=== PATIENT | male | born 1965 | race Caucasian/White ===

== ENCOUNTER 2022-03-25 12:33 | Emergency (ER) | payer BC, SELFPAY ==
[2022-03-25 12:40] VITALS: BP 164/79; PULSE 89; RESP 16; TEMP 37; O2SAT 98
--- NOTE | 2022-03-25 13:00 | DI.RAD_ITS ---
Exam(s) XR FEMUR RT EXAM: XR FEMUR RT CLINICAL HISTORY: Fall, R/O Fracture. TECHNIQUE: 2D digital imaging was performed. COMPARISON: No exams were available for comparison FINDINGS: Four views: There is no evidence of right hip fracture nor hip joint space narrowing. Remainder of the right fem ur also appears unremarkable. There is no obvious joint effusion at the level of the knee. Visualiz ed tibial plateau unremarkable and there is no joint space narrowing in the knee nor in the hip. Bone density is normal. No osseous lesions. IMPRESSION: No significant osseous findings in the right femur and hip. DATA REPOSITORY: RADIATION DOSE DELIVERED:
--- NOTE | 2022-03-25 13:00 | DI.RAD_ITS ---
Exam(s) XR PELVIS AP EXAM: XR PELVIS AP CLINICAL HISTORY: Fall R/O Fracture. TECHNIQUE: 2D digital imaging was performed. COMPARISON: No exams were available for comparison FINDINGS: Single AP view No evidence of pelvic nor hip fracture. Small calcific densities seen just lateral to the greater tr ochanter of the left hip, this measuring 3 x 1 millimeter. Correlation with site of tenderness recom mended. There are no degenerative changes in the hip joints. SI joints unremarkable. Bone density normal. No osseous lesions. IMPRESSION: Small calcific density lateral to the greater trochanter of the left hip. Correlation with site of t enderness recommended. DATA REPOSITORY: RADIATION DOSE DELIVERED:
--- NOTE | 2022-03-25 13:14 | ED.GENADUL_ITS ---
Discharge Plan Disposition Patient Disposition: Home Condition: Stable Discharge Details Clinical Impression: Fall as cause of accidental injury at home as place of occurrence, Contusion of hip, right Primary Care Provider: None,None ED Provider: Genesis Johnston Home Meds and New Rx's Prescriptions: No Action allopurinol 300 MG tablet 300 mg PO DAILY rosuvastatin 5 mg Tablet 5 mg PO DAILY Discharge Instructions Instructions: Contusion in Adults (ED), Fall Prevention (ED) Additional Instructions: X-rays show no evidence for fracture. I do suspect possible sprain and/or contusion. Rest, you may apply ice every 20 minutes for the first couple of days. Please take Tylenol or Ibuprofen with food every 4-6 hours as needed for pain and swelling. Follow up with primary care provider in 7-10 days if needed. Return to ED sooner if any worsening or concerns. Increase oral fluids. Referrals: Charli Osorio [Emergency Nurse] - 2 weeks Discharge Data Discharge Date/Time-TO BE ENTERED AT DEPARTURE: 03/25/22 14:44 Medical Decision Making 56-year-old male presents to the ER with a chief complaint of mechanical fall which occurred 7 PM last night he reports that he slipped in the driveway his feet came out from under him he landed on his right side. He is complaining of right hip pain and radiation of pain into his right femur. No obvious deformity swelling or ecchymosis noted. He did take some naproxen last night which helped with the pain. He is ambulatory here upon arrival. X-ray pelvis femur ordered. Rule out fracture. I do suspect musculoskeletal strain. X-ray within normal limits see results below. Discussed RICE procedures with patient and home care. This text was generated using [employer] system, please disregard any oddities of phrase or misspellings. Imaging Data Radiologic Study: Imaging: X-Ray Radiologist's impression: TECHNIQUE: Imaging protocol: Radiologic exam of the Right femur. Views: 2 views. COMPARISON: CR XR PELVIS AP 03/25/2022 1:40 PM FINDINGS: Bones/joints: Unremarkable. No acute fracture. Soft tissues: Unremarkable. IMPRESSION: No acute findings. Thank you for allowing us to participate in the care of your patient. Dictated and Authenticated by: Farideh Vasques MD Radiologic Study #2: Imaging: X-Ray Radiologist's impression: TECHNIQUE: Imaging protocol: Radiologic exam of the pelvis. Views: 1 or 2 view. COMPARISON: No relevant prior studies available. FINDINGS: Bones/joints: Unremarkable. No acute fracture. Soft tissues: Unremarkable. IMPRESSION: No acute findings. Thank you for allowing us to participate in the care of your patient. Dictated and Authenticated by: Farideh Vasques MD [facility] General Mode of arrival: ambulatory . Date/Time Provider Initiated Documentation: 03/25/22 12:49 . Limitations to Documentation: no limitations . Information obtained by: patient, RN notes reviewed and old records reviewed . HPI Narrative: 56-year-old male presents to the ER with a chief complaint of mechanical fall which occurred 7 PM last night he reports that he slipped in the driveway his feet came out from under him he landed on his right side. He is complaining of right hip pain and radiation of pain into his right femur. No obvious deformity swelling or ecchymosis noted. He did take some naproxen last night which helped with the pain. He is ambulatory here upon arrival. Denies any neck, back pain or abdominal pain. He is not on any blood thinners or aspirin. No other associated symptoms. Related Data Home Medications Medication Instructions Recorded Confirmed allopurinol 300 mg tablet 300 mg PO DAILY 03/14/17 03/25/22 rosuvastatin 5 mg tablet 5 mg PO DAILY 03/25/22 03/25/22 Allergies Allergy/AdvReac Type Severity Reaction Status Date / Time No Known Allergies Allergy Unverified 03/25/22 13:02 General Stated Complaint: Orthopedic TG: 3 Review of Systems All systems reviewed & are unremarkable except as noted in HPI and below ENT Ears, Nose, Mouth, and Throat: Denies neck pain Musculoskeletal Musculoskeletal: Reports as per HPI, Denies back pain, Denies deformity, Reports arthralgias, Denies loss of height, Denies neck pain, Denies numbness, Reports radiating pain into limb and Denies tingling Neurologic Neurologic: Denies numbness and Denies tingling [facility] All Active Problems (Updated 03/25/22 @ 14:35 by Genesis Johnston NP) Fall as cause of accidental injury at home as place of occurrence (Acute) Contusion of hip, right (Acute) Social History Smoking/Tobacco Use Status: Never Smoking risk assessment performed?: Yes Do you feel safe at home: Yes Do you feel safe in your relationship?: Yes Exam Narrative Exam Narrative: General: Well Developed, Awake and Alert, conversant. Skin: Warm and Dry HEENT: Head: No palpable deformities, Normocephalic Eyes: Pupils PERRLA, EOM's intact. Nose/Face: Atraumatic. Neck: No midline tenderness, no step off, no deformity to palpation of C-spine. Trachea midline. Chest: No surface trauma. Nontender without crepitus or deformity. Lungs clear to ausculatation bilaterally. Heart: RRR, no rubs, murmurs or gallop. Abdomen: No abrasions, ecchymosis, or surface trauma. Nondistended. Nontender to palpation no guarding, rebound, or rigidity. Pelvis: Right side tenderness to palpation and stable to compression. Femoral pulses strong and equal no significant swelling noted to the thigh, no ecchymosis or bruising noted. Extremities: no surface trauma. Sensation intact. Peripheral pulses intact and equal. Neuro: ANO x4, GCS 15, cranial nerves II through XII intact. Motor and sensory exam nonfocal. Reflexes are symmetric. Course Vital Signs Vital signs: Vital Signs Temperature 37.0 C 03/25/22 12:40 Pulse 89 03/25/22 12:40 Respiratory Rate 16 03/25/22 12:40 Blood Pressure 164/79 H 03/25/22 12:40 Pulse Oximetry 98 03/25/22 12:40 Temperature 37.0 C 03/25/22 12:40 Temperature Source Temporal Artery Scan 03/25/22 12:40 Pulse 89 03/25/22 12:40 Respiratory Rate 16 03/25/22 12:40 Respiratory Effort 03/25/22 12:46 Blood Pressure 164/79 H 03/25/22 12:40 Blood Pressure Position Sitting 03/25/22 12:40 Pulse Oximetry 98 03/25/22 12:40 Oxygen Delivery Method Room Air 03/25/22 12:40 Oxygen Flow Rate 0 03/25/22 12:40 Pain Level 7 03/25/22 12:57 PAWSS Have you Been Recently Intoxicated or Drunk Within the Last 30 days?: No Have you Ever Experienced Previous Episodes of Alcohol Withdrawal?: No Have you ever Experienced Withdrawal Seizures?: No Have you ever Experienced Delirium Tremens(DT)s?: No Have you ever undergone Alcohol Rehabilitation Treatment (i.e, inpt ot outpatient treatment programs)?: No Have you ever Experienced Blackouts?: No Have you ever Combined Alcohol with other Downers within the last 90 days?: No Have you ever Combined Alcohol with any other Substance of Abuse during the last 90 days?: No Positive Blood Alcohol level on Presentation? [PCS.BAL]: No Evidence of Increased Autonomic Activity (i.e. HR>120, tremor, sweating, agitation, nausea)?: No Result: 0
--- NOTE | 2022-03-25 14:22 | DI.VRAD_ITS ---
PROCEDURE INFORMATION: Exam: XR Pelvis Exam date and time: 03/25/2022 1:40 PM Age: 56 years old Clinical indication: Injury or trauma; Fall; Blunt trauma (contusions or hematomas); Right; Hip TECHNIQUE: Imaging protocol: Radiologic exam of the pelvis. Views: 1 or 2 view. COMPARISON: No relevant prior studies available. FINDINGS: Bones/joints: Unremarkable. No acute fracture. Soft tissues: Unremarkable. IMPRESSION: No acute findings. Dictated and Authenticated by: Farideh Vasques MD. Ordering:CIARRA Hurtado MD
--- NOTE | 2022-03-25 14:24 | DI.VRAD_ITS ---
PROCEDURE INFORMATION: Exam: XR Right Femur Exam date and time: 03/25/2022 1:41 PM Age: 56 years old Clinical indication: Pain; Hip; Right TECHNIQUE: Imaging protocol: Radiologic exam of the Right femur. Views: 2 views. COMPARISON: CR XR PELVIS AP 03/25/2022 1:40 PM FINDINGS: Bones/joints: Unremarkable. No acute fracture. Soft tissues: Unremarkable. IMPRESSION: No acute findings. Dictated and Authenticated by: Farideh Vasques MD. Ordering:CIARRA Hurtado MD
[2022-03-25 14:41] VITALS: BP 157/84; PULSE 94; RESP 18; O2SAT 96
== END 2022-03-25 14:44 | disposition home or self-care (01) ==
PROVIDERS: Emergency Provider Registered Nurse Emergency
DX: S70.01XA Contusion of right hip, initial encounter (principal); W01.10XA Fall on same level from slipping, tripping and stumbling with subsequent striking against unspecified object, initial encounter; Y92.093 Driveway of other non-institutional residence as the place of occurrence of the external cause
CPT/HCPCS: 73552; 99283; 72170; 99282